=== PATIENT | male | born 1950 | race Caucasian/White ===

== ENCOUNTER 2021-12-03 19:09 | Emergency (ER) | payer MEDICARE, SELFPAY ==
[2021-12-03 19:18] VITALS: BP 143/50; PULSE 89; RESP 18; TEMP 37.1; O2SAT 97
--- NOTE | 2021-12-03 19:23 | ED.ABDPAIN ---
HPI - Abdominal Pain General Chief Complaint: Urogenital-Male Stated Complaint: Abdominal Pain Source: patient and RN notes reviewed Mode of arrival: ambulatory Limitations: no limitations History of Present Illness HPI narrative: 71 y/o male presented for c/o RLQ pain, onset this morning. Pain is sharp and constant rates 9/10. Endorses burning with urination, frequency and hesitancy. States he has not been abld to urinate in in about 5 hours. LBM today. Denies associated n/v/d/constipation, hematuria, CVA tenderness f/c. Related Data Home Medications Medication Instructions Recorded Confirmed atenolol 25 mg PO DAILY 12/03/21 12/03/21 atorvastatin 40 mg PO DAILY 12/03/21 12/03/21 clopidogrel [Plavix] 75 mg PO DAILY 12/03/21 12/03/21 divalproex 500 mg PO Q12H 12/03/21 12/03/21 topiramate 50 mg PO BID 12/03/21 12/03/21 Allergies Allergy/AdvReac Type Severity Reaction Status Date / Time phenytoin [From Dilantin] Allergy Anaphylaxis Verified 12/03/21 19:33 Review of Systems Review of Systems: CONSTITUTIONAL: Denies body aches, fever, chills EYES: Denies visual changes ENT: Denies rhinorrhea, congestion CARDIOVASCULAR: Denies chest pain, palpitations, or edema. RESPIRATORY: Denies cough or dyspnea. GASTROINTESTINAL: Endorses RLQ abdominal pain, denies nausea, vomiting, diarrhea, hematochezia, melena, hematemesis GENITOURINARY: reports dysuria, retention, denies hematuria, or CVA tenderness. SKIN: Denies rash, itching, or wounds. MUSCULOSKELETAL: Denies back pain, joint pain, or myalgia. NEUROLOGIC: Denies headache, numbness, tingling, or weakness. PSYCH: Denies mood change All systems reviewed & are unremarkable except as noted in HPI and below PMFSH Comments At time of signature, I have reviewed and agree with nursing past medical, surgical, social and family history unless otherwise noted. Please see nursing chart for further information. There is no relevant family history pertinent to the presenting complaint Exam Narrative: GENERAL: Appears older than stated age, ill-appearing, in no acute distress. HEAD: Normocephalic, atraumatic. EYES: EOMI. Conjunctivae normal. ENT: Mucous membranes pink and moist. NECK: Normal AROM. Supple. No lymphadenopathy. CHEST: O2 4 L chronic continuous no respiratory distress. Clear to auscultation. HEART: Regular rate and rhythm. No murmur appreciated. Normal peripheral pulses. ABDOMEN: Tender abdomen: Right lower and right upper quadrants no guarding, rebound tenderness, or asymmetry; abd soft, nondistended, normal active bowel sounds. MUSCULOSKELETAL: No bony tenderness. EXTREMITIES: Normal range of motion. No edema. SKIN: Warm, dry, no rash. Capillary refill normal. Normal skin turgor. NEURO: No focal deficits. Alert and oriented x3. Gait steady. PSYCH: Normal affect. Course Course Emergency Course: Patient is aware of diagnosis, understands and agrees to treatment plan. Anticipatory guidance given. Patient agrees to follow-up as directed and is aware of reasons to seek care at the emergency department. Portions of this record may have been created with voice recognition software Level of Care: Express Care Visit Vital Signs Vital signs: Vital Signs Temperature 98.7 F 12/03/21 19:18 Pulse Rate 89 12/03/21 19:18 Respiratory Rate 18 12/03/21 19:18 Blood Pressure 143/50 H 12/03/21 19:18 Pulse Oximetry 97 12/03/21 19:18 Temperature 98.7 F 12/03/21 19:34 Pulse Rate 89 12/03/21 19:34 Respiratory Rate 18 12/03/21 19:34 Blood Pressure 143/50 H 12/03/21 19:34 Pulse Oximetry 97 12/03/21 19:34 MDM - Abdominal Pain MDM Narrative Medical decision making narrative: Pt is unable to leave urine sample. The patient is clinically sober, AA&Ox3, free from distracting injury. Throughout our interactions today, the patient has demonstrated concrete thinking/reasoning, has maintained an machine assembler/reasonable conversation, appears to have intact
[2021-12-03 19:34] VITALS: BP 143/50; PULSE 89; RESP 18; TEMP 37.1; O2SAT 97
== END 2021-12-03 20:08 | disposition left against medical advice (07) ==
PROVIDERS: Emergency Provider Nurse Practitioner Family
DX: R33.9 Retention of urine, unspecified (principal); R10.31 Right lower quadrant pain; E78.00 Pure hypercholesterolemia, unspecified; I25.10 Atherosclerotic heart disease of native coronary artery without angina pectoris; Z95.5 Presence of coronary angioplasty implant and graft; G40.909 Epilepsy, unspecified, not intractable, without status epilepticus; Z79.01 Long term (current) use of anticoagulants
CPT/HCPCS: 99211; G0463